=== PATIENT | female | born 1995 | race American Indian/Alaskan Native ===

== ENCOUNTER 2018-07-21 03:13 | Outpatient (CLI) | payer MEDICAID ==
[2018-07-21 04:04] VITALS: BP 126/69
--- NOTE | 2018-07-21 06:35 | Event Note ---
Date: 07/21/18 23 year old at 39 weeks gestation presents to triage to rule out LOF. Patient states she has had some kind of vaginal discharge for several days. She denies vaginal bleeding. Patient reports active movement. Patient states she gets care at [facility] and that she has a follow up appointment there this week. Patient denies any complications with this . Patient is well appearing, alert, oriented, NAD. VSS. Abdomen soft, nontender. SSE: no pooling, negative nitrazine, negative fern. Small amount of thick white vaginal discharge noted without odor. SVE was performed by RN and patient was determined not to be in active labor. NST reactive, category 1 FHR tracing. Patient was discharged home with labor precautions and instructions to count movements daily and follow up at [facility].
== END 2018-07-21 07:34 | disposition home or self-care (01) ==
LOC: TRG 03:13
PROVIDERS: ATTEND Obstetrics & Gynecology
DX: O42.92 Full-term premature rupture of membranes, unspecified as to length of time between rupture and onset of labor (principal); Z87.891 Personal history of nicotine dependence; Z3A.39 39 weeks gestation of pregnancy
CPT/HCPCS: 59025